=== PATIENT | female | born 2000 | race Two or more races ===

== ENCOUNTER 2024-06-02 19:40 | Emergency (ER) | payer OTHER ==
[~2024-06-02] VITALS: Ht 160 cm; Wt 70.3 kg
[2024-06-02 23:01] LABS: HEMATOCRIT 38.5 % (36.0-45.00); HEMOGLOBIN 12.7 g/dL (12.0-15.00); MEAN CELL VOLUME 81.9 fL (80.00-100.00); PLATELET COUNT 381 K/uL (150-450); RED CELL DISTRIBUTION WIDTH 14.5 % (11.5-14.5)
[2024-06-02 23:02] LABS: PH,URINE 5.5 (5.0-8.0); URINE APPEARANCE Clear; URINE BILIRRUBIN Negative (NEGATIVE); URINE BLOOD Negative; URINE COLOR Yellow; URINE GLUCOSE Negative (NEGATIVE); URINE KETONE 15 (NEGATIVE); URINE LEUKOCYTE Negative; URINE NITRATE Negative; URINE PROTEIN Negative (NEGATIVE); URINE UROBILINOGEN 0.2 E.U./dl
[2024-06-02 23:06] LABS: URINE BACTERIA 1244.6 uL (0.0-1933); URINE EPITHELIAL CELLS 31.5 uL (0.0-38.8); URINE WBC 7.1 uL (0.0-23.2)
[2024-06-02 23:12] LABS: URINE CAST 0.15 uL (0.0-1.40)
[2024-06-02 23:30] LABS: ALBUMIN 3.8 gm/dL (3.4-5.0); BILIRUBIN TOTAL 0.53 mg/dL (0.3-1.2); CALCIUM 9.1 mg/dL (8.5-10.1); CREATININE SERUM 0.82 mg/dL (0.55-1.02); GFR 86.39; GLOBULINA 4.2 G/DL (2.4-3.5); POTASSIUM 3.89 mEq/L (3.5-5.1)
== END 2024-06-03 03:15 | disposition home or self-care (01) ==
LOC: ER 19:42
PROVIDERS: Emergency Medicine
DX: N94.0 Mittelschmerz (principal); N83.209 Unspecified ovarian cyst, unspecified side

== ENCOUNTER → 2024-11-27 | Emergency (ER) | payer OTHER ==
[~2024-11-27] VITALS: Ht 160 cm; Wt 76.7 kg
== END | disposition left against medical advice (07) ==
LOC: ER 21:48
DX: Z53.21 Procedure and treatment not carried out due to patient leaving prior to being seen by health care provider (principal)